=== PATIENT | male | born 1980 | race Caucasian/White ===

== ENCOUNTER 2017-04-09 08:42 | Outpatient (CLI) | payer BC ==
--- NOTE | 2017-04-09 11:14 | ULT ---
RIGHT UPPER QUADRANT ULTRASOUND: Date: 04/09/17 HISTORY: 36-year-old male with epigastric pain. FINDINGS: The gallbladder is visualized without evidence of gallstones, wall thickening, edema, or pericholecy stic fluid. Common duct is 0.3 cm. Visualized liver, pancreas, and right kidney are unremarkable. IMPRESSION: No evidence of gallstones or other acute process. Unremarkable right upper quadrant ultrasound. POS: [facility]
== END 2017-04-09 08:43 | disposition home or self-care (01) ==
LOC: ULT 08:42
PROVIDERS: ATTEND Internal Medicine Gastroenterology
DX: R10.13 Epigastric pain (principal)
CPT/HCPCS: 76705